=== PATIENT | male | born 1975 | race Caucasian/White ===

== ENCOUNTER 2017-02-07 21:49 | Emergency (ER) | payer BC ==
[2017-02-07 22:02] VITALS: BP 145/80
[2017-02-07] MEDS ORDERED: HYDROmorphone 1 MG/ML Syringe IM ONE (22:16)
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
--- NOTE | 2017-02-08 09:21 | CR ---
No fracture or dislocation.
== END 2017-02-07 23:15 | disposition home or self-care (01) ==
LOC: JP.ED 21:49
DX: S83.207A Unspecified tear of unspecified meniscus, current injury, left knee, initial encounter (principal); Z79.899 Other long term (current) drug therapy; X58.XXXA Exposure to other specified factors, initial encounter
CPT/HCPCS: 73564; 96372; 99284; J1170